=== PATIENT | female | born 1985 | race Asian ===

== ENCOUNTER 2016-12-21 18:48 | Emergency (ER) | payer OTHER ==
[~2016-12-21] VITALS: Ht 152.4 cm; Wt 52.2 kg
--- NOTE | 2016-12-21 19:09 | NUR ---
PT AMBULATORY TO ER BED 2, BIBSELF FROM URGENT CARE: R/O APPENDICITIS. NAUSEA, ABD PAIN SINCE LAST NIGHT. PT STATES UNABLE TO GET CT AND WAS REFERED TO ER. PT AOX4 RR EVEN AND UNLABORED. NO SOB NOTED. NAD NOTED. NO NVD AT THIS TIME. PT PLACED ON MONITOR WAITING FOR MD SAUL. PT HAS ALL LAB RESULTS FROM URGENT CARE.
--- NOTE | 2016-12-21 19:10 | NUR ---
DR. GOULD AT BEDSIDE FOR EVAL.
--- NOTE | 2016-12-21 19:17 | NUR ---
COPY OF URGENT CARE LABS PLACED IN CHART PER MD REQUEST.
[2016-12-21] MEDS ORDERED: ONDANSETRON HCL/PF - ER 4 MG/2 ML VIAL IV ONE (19:30)
[2016-12-21] MEDS ORDERED: IV NS 0.9% 1,000 ML BAG IV ONE (19:30)
[2016-12-21] MEDS ORDERED: MORPHINE SULFATE INJ 2 MG/ML DISP.SYRIN IV ONE (19:30)
[2016-12-21] MEDS ORDERED: IV NS 0.9% 1,000 ML ONE (19:32)
[2016-12-21] MEDS ORDERED: IV SET PRIMARY 1 EA INFUS.SET MC ONE (19:32)
[2016-12-21] MEDS ORDERED: ONDANSETRON HCL/PF 4 MG/2 ML VIAL ONE (19:32)
[2016-12-21] MEDS ORDERED: MORPHINE SULFATE INJ 2 MG/ML DISP.SYRIN ONE (19:32)
--- NOTE | 2016-12-21 19:37 | NUR ---
PT TO CT VIA W/C
--- NOTE | 2016-12-21 21:13 | NUR ---
DR GOULD AT BEDSIDE SPEAKING TO PT REGARDING RESULTS.
[2016-12-21] MEDS ORDERED: IV SET PRIMARY PUMP SET 1 EA INFUS.SET MC ONE ×2 (21:17→21:59)
[2016-12-21] MEDS ORDERED: CIPROFLOXACIN IV RTU 200 ML IV ONE (21:17)
[2016-12-21] MEDS ORDERED: METRONIDAZOLE 500MG/ NS 100ML 500 MG in PREMIX 1 EA IV SCH (21:30)
[2016-12-21] MEDS ORDERED: CIPROFLOXACIN IV RTU 400 MG in PREMIX 1 EA IV SCH (21:30)
--- NOTE | 2016-12-21 21:56 | NUR ---
PT APPEARS COMFORTABLE. DENIES ANY PAIN AT THIS TIME.
[2016-12-21] MEDS ORDERED: METRONIDAZOLE 500MG/ NS 100ML 100 ML IV ONE (21:59)
[2016-12-21 23:27] VITALS: BP 113/66
--- NOTE | 2016-12-21 23:27 | NUR ---
IV removed. Catheter intact and site benign. Pressure and 4x4 applied to site. No bleeding noted. Patient discharged to home in stable condition. Written and verbal after care instructions given. Patient verbalizes understanding of instruction. ambulatory with a steady gait
== END 2016-12-21 23:27 | disposition home or self-care (01) ==
LOC: ER 18:50
DX: K57.92 Diverticulitis of intestine, part unspecified, without perforation or abscess without bleeding (principal); J45.909 Unspecified asthma, uncomplicated; Z88.0 Allergy status to penicillin; Z41.1 Encounter for cosmetic surgery
CPT/HCPCS: 74176; 96361; 96365; 96367; 96374; 96375; 99284; A4216 ×2; A4606; J0744 ×2; J2270; J2405; J3490 ×2; J7030; Z7610